=== PATIENT | female | born 1955 | race Caucasian/White ===

== ENCOUNTER → 2018-10-16 | Outpatient (CLI) | payer SELFPAY | LOC: RAD 15:37 | DX: Z09 Encounter for follow-up examination after completed treatment for conditions other than malignant neoplasm (principal); I67.82 Cerebral ischemia; I63.9 Cerebral infarction, unspecified ==

== ENCOUNTER 2018-12-31 20:38 | Emergency (ER) | payer SELFPAY ==
[2018-12-31] MEDS ORDERED: KLONOPIN 0.5MG0.5 MG PO (20:51)
[2018-12-31] MEDS ORDERED: HCTZ/TRIAMTEREN1 CA2 PO (20:51)
[2018-12-31 21:06] LABS: EOS # 0.1 (0.04-0.40); EOS % 0.9 % (1.0-5.0); HEMATOCRIT 40.2 % (37.0-47.0); HEMOGLOBIN 13.9 g/dL (12.5-16.0); LYMPH# 1.6 (1.50-4.00); MEAN CELL VOLUME 96 fl (78-100); MEAN CORPUSCULAR HEMOGLOBIN 33 pg (27-31); MEAN CORPUSCULAR HGB CONC 35 g/dL (33-37); MEAN PLATELET VOLUME 9.7 fl (7.4-10.4); PLATELET COUNT 199 K/mm3 (130-400); RED BLOOD COUNT 4.19 M/mm3 (4.10-5.30); RED CELL DISTRIBUTION WIDTH 14.4 % (11.5-14.5); WHITE BLOOD COUNT 12.9 K/mm3 (4.8-10.8)
[2018-12-31] MEDS ORDERED: SERTRALINE HYD100 MG PO (21:11)
[2018-12-31 21:27] LABS: CALCIUM 9.1 mg/dL (8.3-10.5)
[2018-12-31 21:28] LABS: POTASSIUM 2.5 mmol/L (3.5-5.1)
[2018-12-31 22:08] LABS: PROTHROMBIN TIME 9.7 SECONDS (9.0-12.0)
[2018-12-31 22:18] LABS: URINE APPEARANCE HAZY; URINE BILIRUBIN NEGATIVE (NEGATIVE); URINE BLOOD TRACE (NEGATIVE); URINE COLOR YELLOW; URINE GLUCOSE NEGATIVE (NEGATIVE); URINE KETONE NEGATIVE (NEGATIVE); URINE LEUKOCYTE ESTERASE TRACE (NEGATIVE); URINE NITRATE NEGATIVE (NEGATIVE); URINE PROTEIN(semi-quant) TRACE mg/dL (NEGATIVE); URINE UROBILINOGEN NORMAL (NORMAL)
--- NOTE | 2018-12-31 23:32 | NUR ---
Assessment complete. Patient resting in bed awaiting transfer to room at time of assessment. Want/needs addressed at this time. Will cont to monitor.
[2018-12-31 23:50] VITALS: BP 161/81
== END 2018-12-31 23:50 | disposition other institution (70) ==
LOC: ED 20:38
PROVIDERS: Physician Assistant
DX: S01.01XA Laceration without foreign body of scalp, initial encounter (principal); E87.6 Hypokalemia; F10.129 Alcohol abuse with intoxication, unspecified; I10 Essential (primary) hypertension; F17.210 Nicotine dependence, cigarettes, uncomplicated; F32.9 Major depressive disorder, single episode, unspecified; Z23 Encounter for immunization; W22.8XXA Striking against or struck by other objects, initial encounter; Y93.02 Activity, running; Y92.009 Unspecified place in unspecified non-institutional (private) residence as the place of occurrence of the external cause
CPT/HCPCS: 90714; J3480

== ENCOUNTER 2018-12-31 22:54 | Inpatient (IN) | payer SELFPAY ==
[~2018-12-31] VITALS: Ht 165.1 cm; Wt 57.6 kg
[~2018-12-31 22:54] MED LIST: HCTZ/TRIAMTEREN1 CA2 PO; KLONOPIN 0.5MG0.5 MG PO; SERTRALINE HYD100 MG PO
[2018-12-31 23:54] VITALS: BP 161/81
[2018-12-31 23:55] VITALS: BP 161/81
[2019-01-01 03:06] VITALS: BP 117/69
[2019-01-01 06:32] VITALS: BP 130/70
[2019-01-01 06:52] LABS: CALCIUM 9.1 mg/dL (8.3-10.5); POTASSIUM 4.9 mmol/L (3.5-5.1)
[2019-01-01 11:36] VITALS: BP 125/72
[2019-01-01 15:42] VITALS: BP 114/68
[2019-01-01 19:02] VITALS: BP 118/68
[2019-01-01 23:08] VITALS: BP 101/63
[2019-01-02 02:59] VITALS: BP 150/76
[2019-01-02 06:05] VITALS: BP 131/79
[2019-01-02 08:13] LABS: CALCIUM 8.8 mg/dL (8.3-10.5); POTASSIUM 3.5 mmol/L (3.5-5.1)
[2019-01-02] MEDS ORDERED: KLOR-CON 1010 MEQ PO (08:56)
[2019-01-02] MEDS ORDERED: LISINOPRIL10 MG PO (08:56)
[2019-01-02 10:50] VITALS: BP 150/75
== END 2019-01-02 11:55 | disposition home or self-care (01) | DRG 605 ==
LOC: MED/SURG 22:54
PROVIDERS: Nurse Practitioner Primary Care; ADMIT Physician Assistant
PROC: 0HQ0XZZ Repair Scalp Skin, External Approach (ICD-10-PCS; principal; 2018-12-31)
DX: S01.01XA Laceration without foreign body of scalp, initial encounter (principal); E87.6 Hypokalemia; W18.39XA Other fall on same level, initial encounter; F10.129 Alcohol abuse with intoxication, unspecified; Y90.6 Blood alcohol level of 120-199 mg/100 ml; I10 Essential (primary) hypertension; F17.219 Nicotine dependence, cigarettes, with unspecified nicotine-induced disorders
CPT/HCPCS: J1650; J3480

== ENCOUNTER 2019-01-08 14:43 | Emergency (ER) | payer SELFPAY ==
[~2019-01-08 14:43] MED LIST changes: +KLOR-CON 1010 MEQ PO; +LISINOPRIL10 MG PO
[2019-01-08 14:45] VITALS: BP 158/90
== END 2019-01-08 14:50 | disposition home or self-care (01) ==
LOC: ED 14:43
DX: Z48.02 Encounter for removal of sutures (principal)